=== PATIENT | male | born 1960 | race Two or more races ===

== ENCOUNTER 2021-09-01 12:16 | Inpatient (IN) | payer MEDICAID ==
[~2021-09-01] VITALS: Ht 170.2 cm; Wt 89.8 kg
--- NOTE | 2021-09-01 12:28 | NUR ---
PT CAME TO ER C/O ABDOMINAL PAIN X 5 DAYS, "MAINLY IN THE RUQ" RATED 10/10. ADMITS SOB, NAUSEA, VOMITING, FEVER. DENIES CHEST PAIN. AAOX4, AMBULATORY, PT GUARDING SITE, BREATHING EVEN AND UNLABORED, PULSES 2+ BILATERALLY, SKIN WARM TO TOUCH, ABDOMEN TENDER TO PALPATION, SLIGHTLY DISTENTED. ON MONITOR. VS STABLE.
--- NOTE | 2021-09-01 12:29 | NUR ---
PT UNABLE TO PROVIDE URINE SAMPLE AT THIS TIME.
--- NOTE | 2021-09-01 12:47 | NUR ---
Blood sample obtained and sent to lab
[2021-09-01] MEDS ORDERED: ONDANSETRON HCL/PF 4 MG/2 ML VIAL IVP ONE (13:00)
[2021-09-01] MEDS ORDERED: IV NS 0.9% 1,000 ML BAG IV ONE (13:00)
[2021-09-01] MEDS ORDERED: MORPHINE SULFATE INJ 2 MG/ML DISP.SYRIN IV ONE ×2 (13:00→15:00)
[2021-09-01] MEDS ORDERED: ONDANSETRON HCL/PF 4 MG/2 ML VIAL ONE (13:01)
[2021-09-01] MEDS ORDERED: MORPHINE SULFATE INJ 4 MG/ML DISP.SYRIN ONE (13:01)
[2021-09-01 13:04] LABS: BASOPHILS % (AUTO) 0.9 % (0.0-2.0); EOSINOPHILS % (AUTO) 2.1 % (0.0-6.0); HEMATOCRIT 43 % (39-51); HEMOGLOBIN 14.2 g/dL (13.5-17.5); LYMPHOCYTES # (AUTO) 1.6 K/uL (0.8-4.8); LYMPHOCYTES % (AUTO) 31.5 % (20.0-44.0); MEAN CORPUSCULAR HGB CONC 33 g/dl (31.0-36.0); MEAN CORPUSCULAR VOLUME 90 fL (80-96); MONOCYTES # (AUTO) 0.3 K/uL (0.1-1.30); MONOCYTES % (AUTO) 6.6 % (2.0-12.0); NEUTROPHILS % (AUTO) 58.9 % (43.0-81.0); PLATELET COUNT (AUTO) 229 K/uL (150-450); WHITE BLOOD COUNT (AUTO) 5.2 K/uL (4.3-11.0)
[2021-09-01 13:21] LABS: CARBON DIOXIDE 29 mmol/L (21-32); CHLORIDE 106 mmol/L (98-107); GLUCOSE 123 mg/dL (74-106); SODIUM SERUM 142 mmol/L (136-145); UREA NITROGEN, BLOOD 18 mg/dL (7-18)
[2021-09-01 13:28] LABS: ALANINE AMINOTRANSFERASE 35 U/L (12-78); ALBUMIN 3.6 g/dL (3.4-5.0); ALKALINE PHOSPHATASE 89 U/L (46-116); ASPARTATE AMINOTRANSFERASE 21 U/L (15-37); BILIRUBIN,DIRECT 0.1 mg/dL (0.0-0.2); BILIRUBIN,TOTAL 0.3 mg/dL (0.2-1.0); LIPASE 158 U/L (73-393); TOTAL PROTEIN, SERUM 7.2 g/dL (6.4-8.2)
--- NOTE | 2021-09-01 13:44 | NUR ---
ABNORMAL LAB: LACTIC ACID 2.0, AWARE
--- NOTE | 2021-09-01 14:29 | NUR ---
URINE SAMPLE OBTAINED AND SENT TO LAB
[2021-09-01] MEDS ORDERED: APIX2.5T PO (14:57)
[2021-09-01] MEDS ORDERED: ZOLPIDEM TARTRATE 5 MG TABLET PO PRN (15:00)
[2021-09-01] MEDS ORDERED: ACETAMINOPHEN 325 MG TABLET PO PRN (15:00)
[2021-09-01] MEDS ORDERED: Z GUARD REMEDY 2 OZ OINT TP PRN (15:00)
[2021-09-01] MEDS ORDERED: MAG HYDROX/AL HYDROX/SIMETH 30 ML UDC PO PRN (15:00)
[2021-09-01] MEDS ORDERED: HYDROCODONE/APAP 5/325MG TABLET PO PRN (15:00)
[2021-09-01] MEDS ORDERED: MAGNESIUM HYDROXIDE 30 ML UDC PO PRN (15:00)
[2021-09-01] MEDS ORDERED: MORPHINE SULFATE INJ 2 MG/ML DISP.SYRIN ONE (15:06)
--- NOTE | 2021-09-01 15:30 | NUR ---
PT LAYING COMFORTABLY IN BED, BLANKET GIVEN
[2021-09-01 15:33] LABS: BILIRUBIN,URINE Negative (NEGATIVE); COLOR,URINE YELLOW (YELLOW); LEUKOCYTE ESTERASE ,URINE Negative (NEGATIVE); NITRITE, URINE Negative (NEGATIVE); PROTEIN,URINE Negative (NEGATIVE); UGLUCOSE Negative (NEGATIVE); UROBILINOGEN,URINE 0.2 EU/dL (0.2)
--- NOTE | 2021-09-01 16:41 | NUR ---
COVID SWAB DONE AND SENT TO THE LAB
--- NOTE | 2021-09-01 16:51 | NUR ---
Pt laying comfortably in bed. Murray given. Needs met.
--- NOTE | 2021-09-01 17:20 | NUR ---
PT LAYING IN BED COMFORTABLY, WAITING FOR FLOOR BED
--- NOTE | 2021-09-01 18:35 | NUR ---
GOT BED 312-1
--- NOTE | 2021-09-01 18:40 | NUR ---
CALLED FLOOR NURSE TO GIVE REPORT, UNABLE TO REACH
--- NOTE | 2021-09-01 19:02 | NUR ---
REPORT GIVEN TO NURSE MARK
--- NOTE | 2021-09-01 19:28 | NUR ---
RN NOTE PT IN BED COMFORTABLE. V/S TAKEN. IN STABLE CONDITION. NO S/S OF PAIN OR NAUSEA. IV PRESENT AND FLUSHING WELL. LABS AND ORDERS REVIEWED. REPORT GIVEN TO NIGHT NURSE FOR DEVENDRA.
[2021-09-01 20:00] VITALS: BP 134/89
--- NOTE | 2021-09-01 20:00 | NUR ---
MS RN OPENING NOTE PATIENT RESTING IN BED, ALERT/ORIENTED X 4, PRIMARILY [place] SPEAKING. PT STABLE ON RA, NO S/S OF DISTRESS OR SOB NOTED, BREATHING EVEN AND UNLABORED. IV ACCESS ON RIGHT AC #20G INTACT AND FLUSHING WELL. PATIENT ON FULL LIQUID DIET. ORIENTED PATIENT TO ROOM AND HOW TO USE CALL LIGHT. SAFETY MEASURES IN PLACE: CALL LIGHT WITHIN REACH, SIDE RAILS UP X 2, BED LOCKED IN LOW POSITION. WILL CONTINUE TO MONITOR PATIENT
[2021-09-01] MEDS: IV NS 0.9% 1,000 ML IV PRN (20:30)
[2021-09-01] MEDS: MORPHINE SULFATE INJ 2 MG/ML DISP.SYRIN IV PRN (20:31)
--- NOTE | 2021-09-01 20:35 | NUR ---
MS RN NOTE PATIENT REPORTING ABDOMINAL PAIN. MORPHINE 2 MG IV GIVEN ORDERED. WILL CONTINUE TO MONITOR PATIENT
[2021-09-02] MEDS: MORPHINE SULFATE INJ 2 MG/ML DISP.SYRIN IV PRN ×4 (05:11→19:41)
--- NOTE | 2021-09-02 06:27 | NUR ---
MS RN CLOSING NOTES PATIENT SLEEPING IN BED, EASILY AWAKENED, NO SIGNIFICANT CHANGES THROUGHOUT SHIFT. PT PRIMARILY FRISIAN SPEAKING. PT STABLE ON RA, NO S/S OF DISTRESS OR SOB NOTED, BREATHING EVEN AND UNLABORED. PT REPORTING ACUTE RIGHT EARACHE/HARD OF HEARING THAT BEGAN 2 DAYS AGO, CONCERNED ABOUT AN EAR INFECTION. RIGHT AC IV ACCESS RUNNING NS @ 75 ML/HR. MEDICATIONS GIVEN ORDERED, PT NEEDS MET THROUGHOUT SHIFT. SAFETY MEASURES IN PLACE: CALL LIGHT WITHIN REACH, SIDE RAILS UP X 2, BED LOCKED IN LOW POSITION. WILL ENDORSE TO DAY SHIFT NURSE FOR CONTINUITY OF CARE
[2021-09-02 08:00] VITALS: BP 110/78
[2021-09-02] MEDS: PANTOPRAZOLE 40 MG TABLET.DR PO SCH (08:57)
[2021-09-02 09:14] LABS: BASOPHILS % (AUTO) 0.4 % (0.0-2.0); EOSINOPHILS % (AUTO) 2.1 % (0.0-6.0); HEMATOCRIT 41 % (39-51); HEMOGLOBIN 13.5 g/dL (13.5-17.5); LYMPHOCYTES # (AUTO) 1.4 K/uL (0.8-4.8); LYMPHOCYTES % (AUTO) 26.1 % (20.0-44.0); MEAN CORPUSCULAR HGB CONC 33 g/dl (31.0-36.0); MEAN CORPUSCULAR VOLUME 91 fL (80-96); MONOCYTES # (AUTO) 0.3 K/uL (0.1-1.30); MONOCYTES % (AUTO) 6.2 % (2.0-12.0); NEUTROPHILS # (AUTO) 3.6 K/uL (1.8-8.9); NEUTROPHILS % (AUTO) 65.2 % (43.0-81.0); PLATELET COUNT (AUTO) 193 K/uL (150-450); RED BLOOD CELL COUNT(AUTO) 4.54 MIL/uL (4.5-6.0); WHITE BLOOD COUNT (AUTO) 5.4 K/uL (4.3-11.0)
[2021-09-02 09:50] LABS: THYROID STIMULATING HORMONE 1.387 uIU/mL (0.358-3.74)
[2021-09-02 10:27] LABS: CALCIUM, SERUM 8.6 mg/dL (8.5-10.1); CREATININE 0.9 mg/dL (0.6-1.3); MAGNESIUM 1.9 mg/dL (1.8-2.4); PHOSPHORUS 2.9 mg/dL (2.5-4.9); POTASSIUM 3.5 mmol/L (3.5-5.1)
--- NOTE | 2021-09-02 12:30 | NUR ---
fernanda simulation analyst in orders given. pt. concerned about earache rt. ear.matt dubois aware.
[2021-09-02] MEDS: IV NS 0.9% 1,000 ML IV PRN (12:31)
[2021-09-02 16:00] VITALS: BP 118/77
[2021-09-02] MEDS ORDERED: INFLUENZA VACCINE 2021-22 0.5 ML DISP.SYRIN IM ONE (17:00)
[2021-09-02] MEDS ORDERED: CARBAMIDE PEROXIDE OTIC 15 ML BOTTLE RIGHT EAR ONE (17:00)
--- NOTE | 2021-09-02 18:00 | NUR ---
med. x 2 with morphine for abd. pain.
--- NOTE | 2021-09-02 18:25 | NUR ---
given flu shot.
--- NOTE | 2021-09-02 18:30 | NUR ---
received pt. in am alert and oriented x4.[place] speaking iv infusing.vs stable.
[2021-09-02] MEDS: ONDANSETRON HCL/PF 4 MG/2 ML VIAL IVP PRN (19:41)
--- NOTE | 2021-09-02 19:45 | NUR ---
MS RN OPENING NOTES PT AWAKE IN ROOM, ALERT/ORIENTED X 4, PT ABLE TO MAKE NEEDS KNOWN. PATIENT REPORTING NAUSEA AND 10/10 ABDOMINAL PAIN, MORPHINE 2 MG IV AND ZOFRAN 4 MG IV GIVEN ORDERED. IV ACCESS ON RIGHT AC #20G INTACT AND RUNNING NS @ 75 ML/HR. SAFETY MEASURES IN PLACE: CALL LIGHT WITHIN REACH, SIDE RAILS UP X 2, BED LOCKED IN LOW POSITION. WILL CONTINUE TO MONITOR PATIENT
[2021-09-02 20:00] VITALS: BP 130/80
[2021-09-03] MEDS: MORPHINE SULFATE INJ 2 MG/ML DISP.SYRIN IV PRN ×2 (04:05→09:11)
--- NOTE | 2021-09-03 06:44 | NUR ---
MS RN CLOSING NOTES PATIENT SLEEPING IN BED, EASILY AWAKENED, NO SIGNIFICANT CHANGES THROUGHOUT SHIFT. PT PRIMARILY [place] SPEAKING. PT STABLE ON RA, NO S/S OF DISTRESS OR SOB NOTED, BREATHING EVEN AND UNLABORED. RIGHT AC IV ACCESS RUNNING NS @ 75 ML/HR. MEDICATIONS GIVEN ORDERED, PT NEEDS MET THROUGHOUT SHIFT. SAFETY MEASURES IN PLACE: CALL LIGHT WITHIN REACH, SIDE RAILS UP X 2, BED LOCKED IN LOW POSITION. WILL ENDORSE TO DAY SHIFT NURSE FOR CONTINUITY OF CARE
--- NOTE | 2021-09-03 07:35 | NUR ---
MS RN OPENING NOTES RECEIVED PT AWAKE, A/O X4. NO SIGNS OF ACUTE DISTRESS NOTED. ON ROOM AIR SATURATION @94%, NO SOB NOTED, BREATHING EVEN AND UNLABORED. WITH IV ACCESS ON RAC #20G, INTACT AND PATENT, WITH NS @75ML/HR RUNNING. OFFERED NO COMPLAINTS. SAFETY PRECAUTIONS MAINTAINED, BED LOCKED AND IN LOWEST POSITION, SR UP X2, CALL LIGHT PLACED WITHIN EASY REACH. WILL CONTINUE TO MONITOR.
[2021-09-03] MEDS: PANTOPRAZOLE 40 MG TABLET.DR PO SCH (07:49)
[2021-09-03] MEDS: ONDANSETRON HCL/PF 4 MG/2 ML VIAL IVP PRN (07:56)
[2021-09-03 08:00] VITALS: BP 115/78
[2021-09-03] MEDS ORDERED: CARB15DR12 EACH EAR (14:02)
[2021-09-03] MEDS ORDERED: ONDA4TAB5 PO (14:02)
[2021-09-03] MEDS ORDERED: NAPR-1164 PO (14:02)
--- NOTE | 2021-09-03 15:49 | NUR ---
HAT FORMING MACHINE FEEDER NOTES PT DISCHARGE HOME IM STABLE CONDITION. A/O X4, VERBALLY RESPONSIVE, ABLE TO MAKE NEEDS KNOWN. VITAL SIGNS TAKEN, STABLE AND RECORDED. ALL BELONGINGS ACCOUNTED FOR, FORM SIGNED BY PT. IV ACCESS ON RAC REMOVED, NO BLEEDING NOTED, DRY PRESSURE DRESSING APPLIED TO SITE. NAME [facility] REMOVED, HEALTH TEACHINGS AND DISCHARGE INSTRUCTIONS PROVIDED TO PT WITH VERBALIZATION OF UNDERSTANDING. PT LEFT UNIT AT 1535 AMBULATORY, ACCOMPANIED PT TO THE LOBBY, PER PT HE WILL TAKE THE BUS TO HOME, IT'S ONLY A COUPLE OF BLOCKS AWAY. CN AND MD AWARE OF DISCHARGE.
== END 2021-09-03 16:33 | disposition home or self-care (01) | DRG 254 ==
LOC: ER 12:21 → MED 18:38
PROVIDERS: ATTEND Nurse Practitioner Acute Care
DX: K42.9 Umbilical hernia without obstruction or gangrene (principal); K76.89 Other specified diseases of liver; D17.71 Benign lipomatous neoplasm of kidney; Z68.31 Body mass index [BMI] 31.0-31.9, adult; N40.0 Benign prostatic hyperplasia without lower urinary tract symptoms; Z86.718 Personal history of other venous thrombosis and embolism; Z20.822 Contact with and (suspected) exposure to COVID-19; Z79.01 Long term (current) use of anticoagulants; H60.91 Unspecified otitis externa, right ear; H61.21 Impacted cerumen, right ear; E66.9 Obesity, unspecified; K43.9 Ventral hernia without obstruction or gangrene; I70.0 Atherosclerosis of aorta; J98.11 Atelectasis; Z98.890 Other specified postprocedural states
CPT/HCPCS: 36415; 80048-TC; 80076-TC; 83605-TC; 83690-TC; 83735-TC; 84100-TC; 84443-TC; 85025-TC; 87040-TC; 87081-TC; C9803; G0378; J2270; J2405; J7030; Q2036